=== PATIENT | female | born 2005 | race Caucasian/White ===

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

== ENCOUNTER 2024-07-21 18:15 | Emergency (ER) | payer OTHER ==
[2024-07-21 19:26] LABS: #Basophils Less than 0.03 10x3/uL (0.0-0.2); #Eosinophils 0.09 10x3/uL (0.0-0.5); #Monocytes 0.67 10x3/uL (0.0-1.1); #Neutrophils 2.51 10x3/uL (1.5-8.4); %Basophils 0.4 % (0.0-2.0); %Lymphocytes 27.8 % (18.0-47.0); %Monocytes 14.7 % (0.0-10.0); %Neutrophils 54.9 % (40.0-75.0); Hematocrit 31.5 % (34.9-44.5); Hemoglobin 10.7 g/dL (12.0-15.5); Mean Corpuscular Hemoglobin 31.6 pg (27.0-33.0); Mean Corpuscular Volume 92.9 fL (81.6-98.3); Mean Platelet Volume 9.6 fL (7.4-10.4); Platelet Count 228 10x3/uL (150-450); RBC Distribution Width 13.8 % (11.5-14.5); Red Blood Cell (RBC) Count 3.39 10x6/uL (3.90-5.03); White Blood Cell (WBC) Count 4.57 10x3/uL (3.5-10.5)
[2024-07-21 19:46] LABS: ALT (SGPT) 7 U/L (Less than 34); AST (SGOT) 17 U/L (11-34); Albumin 3.3 g/dL (3.1-4.5); Alkaline Phosphatase 43 U/L (40-100); Anion Gap 10 mmol/L (10-20); BUN (Urea Nitrogen) 4 mg/dL (8.4-21.0); Bilirubin, Total 0.2 mg/dL (0.3-1.2); Calc. Creatinine Clearance 0 mL/min (70-130); Calcium 8.5 mg/dL (7.8-10.44); Carbon Dioxide 20 mmol/L (22-29); Chloride 108 mmol/L (98-107); Estimated GFR 140; Globulin 3.4 g/dL (2.4-3.5); Glucose 83 mg/dL (70-105); Potassium 3.4 mmol/L (3.5-5.1); Protein, Total 6.7 g/dL (6.0-8.3); Sodium 135 mmol/L (136-145)
[2024-07-21 19:52] LABS: Troponin I Less than 0.010 ng/mL (< 0.028)
[2024-07-21] MEDS ORDERED: Potassium Chloride 20 MEQ TAB ONE (20:24)
== END 2024-07-21 20:40 | disposition home or self-care (01) ==
LOC: CSHERS 18:15
DX: O98.512 Other viral diseases complicating pregnancy, second trimester (principal); J10.1 Influenza due to other identified influenza virus with other respiratory manifestations; Z3A.21 21 weeks gestation of pregnancy
CPT/HCPCS: 36415; 71046; 80053; 83880; 84443; 84484; 85025; 87428; 93005